=== PATIENT | female | born 1990 | race Caucasian/White ===

== ENCOUNTER 2020-01-08 21:58 | Inpatient (IN) ==
[2020-01-08 21:18] LABS: Basophils % 0.1 %; Eosinophils # 0.1 K/mcL (0.0-0.6); Eosinophils % 0.8 %; Hematocrit 39.3 % (35.3-44.9); Hemoglobin 12.6 g/dL (11.5-15.4); Immature Granulocytes % 0.5 % (0-4); Lymphocytes # 1.6 K/mcL (0.6-4.6); Lymphocytes % 16.4 %; Mean Corpuscular HGB Conc 32.1 g/dL (31.6-35.5); Mean Corpuscular Hemoglobin 29.4 pg (28.0-33.3); Mean Corpuscular Volume 91.8 fL (83.0-100.0); Mean Platelet Volume 9.8 fL (9.4-12.4); Monocytes # 0.8 K/mcL (0.0-1.3); Monocytes % 8.1 %; Neutrophils # 7.2 K/mcL (1.6-8.9); Platelet Count 241 K/mcL (140-400); Red Blood Count 4.28 M/mcL (3.82-4.97); Red Cell Distribution Width 13.5 % (11.5-14.5); Segmented Neutrophils % 74.1 %; White Blood Count 9.8 K/mcL (4.3-11.1)
[2020-01-08 21:26] LABS: Amphetamine Screen,Urine Negative ng/mL (Cutoff=1000); Barbiturate Screen,Urine Negative ng/mL (Cutoff=200); Benzodiazepines Screen,Urine Negative ng/mL (Cutoff=200); Cannabinoid Screen,Urine Negative ng/mL (Cutoff = 50); Cocaine Screen,Urine Negative ng/mL (Cutoff= 300); Opiate Screen,Urine Negative ng/mL (Cutoff=300); Phencyclidine Screen,Urine Negative ng/mL (Cutoff=25)
[~2020-01-08 21:58] MED LIST: Famotidine 20 MG/2 ML VIAL IVP PRN; Metoclopramide 10 MG/2 ML VIAL IVP PRN; Naloxone 0.4 MG/ML INJ IVP PRN; Oxytocin 20 units/ LR 1000 mL 20 UNIT/1,000 ML BAG IVC SCH; Penicillin G Potassium 5,000,000 UNIT in 0.9 % Sodium Chloride Mini Bag 100 ML IVPB ONE; Ringers Solution, Lactated 1,000 ML IVC SCH; Ringers Solution, Lactated 1,000 ML ONE
[2020-01-08] MEDS ORDERED: *HR* FentaNYL (PF) 100 MCG/2 ML VIAL IVP ONE (23:54)
[2020-01-09] MEDS ORDERED: Penicillin G Potassium 2,500,000 UNIT in 0.9 % Sodium Chloride 100 ML IVPB SCH (01:00)
[2020-01-09] MEDS ORDERED: EPHEDrine 50 MG/ML VIAL IVP PRN (01:08)
[2020-01-09] MEDS ORDERED: Epidural Premix (fent/bupiv) 110 ML EP ONE (01:10)
[2020-01-09] MEDS ORDERED: Epidural Premix (fent/bupiv) 110 ML EP SCH (01:15)
[2020-01-09] MEDS ORDERED: Ondansetron 4 MG/2 ML VIAL IVP ONE (02:25)
[2020-01-09] MEDS ORDERED: Oxytocin 20 units/ LR 1000 mL 20 UNIT/1,000 ML BAG IVC ONE (06:30)
[2020-01-09] MEDS ORDERED: Rho Immune Globulin 1,500 UNIT SYRINGE IM PRN (06:30)
[2020-01-09] MEDS ORDERED: Oxytocin 20 units/ LR 1000 mL 20 UNIT/1,000 ML BAG IVC SCH (06:30)
[2020-01-09] MEDS ORDERED: Measles/Mumps/Rubella Vacc 0.5 ML VIAL SQ PRN (06:30)
[2020-01-09] MEDS ORDERED: Acetaminophen 325 MG TABLET PO PRN (06:30)
[2020-01-09] MEDS ORDERED: Benzocaine/Menthol 56 GM AEROSOL SPRAY TP PRN (06:30)
[2020-01-09] MEDS ORDERED: Lanolin 7 G OINT...G. TP PRN (06:30)
[2020-01-09] MEDS: Prenatal Vit/FA 1 EACH TABLET PO SCH (08:32)
[2020-01-09] MEDS: Ibuprofen 600 MG TABLET PO PRN (21:10)
[2020-01-10 07:53] VITALS: BP 145/93
[2020-01-10] MEDS: Prenatal Vit/FA 1 EACH TABLET PO SCH (08:35)
[2020-01-10] MEDS: Ibuprofen 600 MG TABLET PO PRN (08:36)
== END 2020-01-10 11:45 | disposition home or self-care (01) | DRG 806 ==
LOC: 1NENULAB → 1NENUOBS 01-09 06:47
PROVIDERS: ADMIT Student in an Organized Health Care Education/Training Program; ATTEND Student in an Organized Health Care Education/Training Program